=== PATIENT | female | born 1960 | race Hispanic/Latino ===

== ENCOUNTER → 2025-01-21 | Day surgery (SDC) | payer BC, OTHER ==
[2025-01-19 09:59] LABS: EST GLOMERULAR FILTRATION RATE 100.0 ML/MIN (>=60)
[~2025-01-21] MED LIST: CRESTOR40 MG PO; DEXAMETHASONE SOD PHOS INJ 4 MG/ML SDV ONE; GLYCOPYRROLATE INJ 0.2 MG/ML VIAL ONE; LIDOCAINE HCL 2% LOCAL INJ 5 ML SDV VIAL INJ ONE; ONDANSETRON HCL INJ 2MG/ML 2ML 2 MG/ML VIAL ONE; PROPOFOL IV EMULSION 10 MG/ML 20 ML VIAL ONE
[2025-01-21] MEDS: LACTATED RINGER'S 1,000 ML ONE (06:15)
[2025-01-21] MEDS: PHENYLEPHRINE HCL 2 ML DROPS ONE (06:15)
[2025-01-21] MEDS: GATIFLOXACIN(OPTH) 5 ML LIQD ONE (06:15)
[2025-01-21] MEDS: CYCLOPENTOLATE HCL 2% OPTH SOLN 2 ML BTL OP ONE (06:15)
[2025-01-21 08:08] VITALS: TEMP 97.1
[2025-01-21 08:30] VITALS: BP 132/80; PULSE 79; RESP 18; O2SAT 95
== END | disposition home or self-care (01) ==
LOC: OR 05:25
PROVIDERS: ATTEND Ophthalmology
DX: H25.12 Age-related nuclear cataract, left eye (principal); E78.5 Hyperlipidemia, unspecified; Z01.810 Encounter for preprocedural cardiovascular examination; Z01.812 Encounter for preprocedural laboratory examination; Z79.899 Other long term (current) drug therapy
CPT/HCPCS: 36415; 66984; 80048; 85014; 85018; 93005; J1100; J2003; J2405; J2704; J7121